=== PATIENT | female | born 1990 | race Caucasian/White ===

== ENCOUNTER → 2018-09-25 16:30 | Outpatient (CLI) | payer OTHER, SELFPAY ==
[2018-09-30 13:40] LABS: HPV Reflexed? NOT INDICATED
== END ==
PROVIDERS: Referring Provider Obstetrics & Gynecology; Visit Provider Obstetrics & Gynecology
DX: Z12.4 Encounter for screening for malignant neoplasm of cervix (principal)
CPT/HCPCS: 88175; G0145

== ENCOUNTER → 2019-06-06 | Outpatient (CLI) | payer OTHER, SELFPAY ==
[2019-06-13 12:37] LABS: HPV Reflexed? NOT INDICATED
== END | disposition home or self-care (01) ==
LOC: LABSPEC 15:15
PROVIDERS: Visit Provider Obstetrics & Gynecology
DX: Z12.4 Encounter for screening for malignant neoplasm of cervix (principal)
CPT/HCPCS: 88175; G0145